=== PATIENT | female | born 1995 | race Caucasian/White ===

== ENCOUNTER 2017-06-05 16:59 | Emergency (ER) | payer BC ==
[2017-06-05 17:03] VITALS: BP 124/65; PULSE 95; RESP 18; TEMP 98.2; O2SAT 99
[2017-06-05] MEDS ORDERED: PROPARACAINE 0.5% 15 ML OPHT DROP OP ONE (17:08)
[2017-06-05] MEDS ORDERED: GENTAMICIN 0.3% DROPS PREPACK OPHT.BTL TAKEHOME ONE (17:08)
[2017-06-05] MEDS ORDERED: FLUORESCEIN SODIUM 1 MG STRIP OP ONE (17:10)
--- NOTE | 2017-06-05 17:15 | EDPHY ---
H & P Stated Complaint: right eye injury, hit eye with necklace Time Seen by Provider: 06/05/17 17:11 HPI/ROS: HPI: This 22-year-old female who presents with Chief Complaint: Injury to right eye Location: Right eye Quality: Injury Duration: 30 minutes prior to arrival Signs and Symptoms: No blurred vision, + eye redness, no discharge, no floaters , no photophobia Timing: sudden Severity:5 Context: Patient was outside playing a game when she jumped up and her crystal necklace hit her in the right eye. + immediate pain, tearing. She called her MD who advised ER visit for eye exam. Does not were contact lenses. Drops self to the ER. Modifying Factors: Did not apply saline eyedrops Comment: ROS: Constitutional: No fever, no chills, no weight loss Eyes: No blurred vision Respiratory: No shortness of breath, no cough Cardiovascular: No chest pain Gastrointestinal: No nausea, no vomiting no diarrhea Genitourinary: No dysuria Extremities: No myalgias Neurologic: No weakness, no numbness Skin: No rashes Hematologic: No bruising, no bleeding MEDICAL/SURGICAL/SOCIAL HISTORY: Epilepsy. IUD in place. - Personal History LMP (Females 10-55): IUD In Place Current Tetanus/Diphtheria Vaccine: Yes Current Tetanus Diphtheria and Acellular Pertussis (TDAP): Yes Tetanus Vaccine Date: < 10 years - Medical/Surgical History Hx Asthma: No Hx Chronic Respiratory Disease: No Hx Diabetes: No Hx Cardiac Disease: No Hx Renal Disease: No Hx Cirrhosis: No Hx Alcoholism: No Hx HIV/AIDS: No Hx Splenectomy or Spleen Trauma: No Other PMH: epilepsy - Social History Smoking Status: Current every day smoker - Physical Exam Exam: Visual Acuity: noted from Nurse's notes. Pupils: equal round and reactive to light. EOMI. Lids: no edema or swelling Skin: no proptosis, no periorbital erythema or swelling, no vesicles Conjunctivae: mildly injected, no discharge Cornea: exam with fluorescein shows 7 o'clock glowing, small area of uptake. No foreign body appreciated. Anterior chamber: normal, no hyphema or hypopyon Constitutional: Initial Vital Signs Temperature (C) 36.8 C 06/05/17 17:01 Heart Rate 95 06/05/17 17:01 Respiratory Rate 18 06/05/17 17:01 Blood Pressure 124/65 H 06/05/17 17:01 O2 Sat (%) 99 06/05/17 17:01 O2 Delivery Mode Room Air Allergies/Adverse Reactions: No Known Allergies Allergy (Unverified 06/05/17 17:00) Home Medications: Medication Instructions Recorded Depakote 06/05/17 Gentamicin 0.3% [Gentak 0.3% Opht 2 drop OP Q4WA #1 opht.btl 06/05/17 Drops] Medical Decision Making ED Course/Re-evaluation: Not a contact lens wearer. Small area of corneal abrasion noted; no foreign body appreciated. Relief of discomfort with topical anesthetic. Given gentamicin drops to take home. ophthalmology follow-up Differential Diagnosis: Differential diagnosis includes but is not limited to corneal abrasion, corneal erosion, ocular foreign body, carotid conjunctivitis. - Data Points Medications Given: Discontinued Medications Fluorescein Sodium ([id number]) 1 mg OP EDNOW ONE Stop: 06/05/17 17:11 Last Admin: 06/05/17 17:17 Dose: 1 mg Gentamicin Sulfate (Gentak 0.3% Opht Drops Prepack) 1 btl TAKEHOME EDNOW ONE Stop: 06/05/17 17:09 Last Admin: 06/05/17 17:17 Dose: 1 btl Proparacaine HCl (Alcaine 0.5%) 1 drops OP EDNOW ONE Stop: 06/05/17 17:09 Last Admin: 06/05/17 17:16 Dose: 2 drop Departure - Departure Disposition: Home, Routine, Self-Care Clinical Impression: Corneal abrasion, right Qualifiers: Encounter type: initial encounter Qualified Code(s): S05.01XA - Injury of conjunctiva and corneal abrasion without foreign body, right eye, initial encounter Condition: Good Instructions: Corneal Abrasion (ED) Referrals: YOLANDA RESENDIZ [Other] - As per Instructions Tyrell Hagen MD [Medical Doctor] - 2-3 days without fail Prescriptions: Gentamicin 0.3% [Gentak 0.3% Opht Drops] 2 drop OP Q4WA #1 opht.btl
== END 2017-06-05 17:47 | disposition home or self-care (01) ==
DX: S05.01XA Injury of conjunctiva and corneal abrasion without foreign body, right eye, initial encounter (principal); F17.200 Nicotine dependence, unspecified, uncomplicated; W22.8XXA Striking against or struck by other objects, initial encounter; Y99.8 Other external cause status; Y93.39 Activity, other involving climbing, rappelling and jumping off